=== PATIENT | female | born 1950 | race Caucasian/White ===

== ENCOUNTER → 2020-08-23 | Outpatient (CLI) | payer BC, OTHER ==
[~2020-08-23] MED LIST: BAYER CHEWABLE81 MG PO; CARAFATE1 GM/10 ML PO; CRESTOR 10 MG T10 MG PO; FEOSOL325 MG PO; FOLIC ACID 1 MG1 MG PO; GLUCOPHAGE1000 MG PO; LORTAB 5-325 M1 EACH PO; NAPROXEN500 MG PO; PROTONIX 20 MG20 MG PO; PROTONIX 40 MG40 M1 PO; SYNTHROID100 MCG PO; VITAMIN B-121000 MCG PO; ZOFRAN4 MG PO
== END ==
LOC: KOH-I 14:55
DX: R51.9 Headache, unspecified (principal)
CPT/HCPCS: 70450

== ENCOUNTER 2020-09-24 09:23 | Emergency (ER) | payer BC, OTHER ==
[~2020-09-24 09:23] MED LIST changes: -PROTONIX 40 MG40 M1 PO
[2020-09-24 09:44] LABS: HEMOGLOBIN 13.9 gm/dl (12.3-15.3); RED BLOOD COUNT 4.89 M/UL (4.00-5.10); WHITE BLOOD COUNT 9.3 K/UL (4.5-11.0)
[2020-09-24 10:07] LABS: BUN/CREATININE RATIO 15 (0-10)
[2020-09-24] MEDS ORDERED: PROTONIX 40 MG40 M1 PO (17:25)
== END 2020-09-24 17:40 | disposition home or self-care (01) ==
LOC: ER1 09:23
PROVIDERS: Student in an Organized Health Care Education/Training Program
DX: R07.89 Other chest pain (principal); M89.9 Disorder of bone, unspecified; R91.8 Other nonspecific abnormal finding of lung field; R59.0 Localized enlarged lymph nodes; E11.9 Type 2 diabetes mellitus without complications; E03.9 Hypothyroidism, unspecified; Z79.899 Other long term (current) drug therapy; Z79.84 Long term (current) use of oral hypoglycemic drugs; Z88.8 Allergy status to other drugs, medicaments and biological substances; Z53.20 Procedure and treatment not carried out because of patient's decision for unspecified reasons
CPT/HCPCS: 71045; 80053; 82550; 82553; 83690; 83874; 84484; 85025; 85379; 93005; 99285; J7030; Q9967

== ENCOUNTER → 2020-09-30 | Outpatient (CLI) | payer BC, OTHER ==
[~2020-09-30] MED LIST changes: +PROTONIX 40 MG40 M1 PO
== END ==
LOC: LAB 14:17
PROVIDERS: Family Medicine
DX: Q78.2 Osteopetrosis (principal)
CPT/HCPCS: 36415; 80048; 82330; 83970

== ENCOUNTER → 2020-10-08 | Outpatient (CLI) | payer BC, OTHER | LOC: LAB 09:46 | PROVIDERS: Family Medicine | DX: E86.0 Dehydration (principal) | CPT/HCPCS: 36415; 80048 ==

== ENCOUNTER → 2020-11-16 | Outpatient (CLI) | payer BC | LOC: MAMO 10-28 11:30 | DX: Z12.31 Encounter for screening mammogram for malignant neoplasm of breast (principal) | CPT/HCPCS: 77063; 77067 ==

== ENCOUNTER → 2020-11-25 | Outpatient (CLI) | payer BC ==
[2020-11-25 07:16] LABS: HEMOGLOBIN 12.8 gm/dl (12.3-15.3); RED BLOOD COUNT 4.68 M/UL (4.00-5.10)
[2020-11-25 07:44] LABS: BUN/CREATININE RATIO 22 (0-10)
== END ==
LOC: LAB 06:12
PROVIDERS: Family Medicine
DX: E03.9 Hypothyroidism, unspecified (principal); E11.9 Type 2 diabetes mellitus without complications; E53.8 Deficiency of other specified B group vitamins; E55.9 Vitamin D deficiency, unspecified; E78.5 Hyperlipidemia, unspecified; M19.90 Unspecified osteoarthritis, unspecified site
CPT/HCPCS: 36415; 80053; 80061; 82607; 83036; 84443; 85025

== ENCOUNTER → 2021-03-25 | Outpatient (CLI) | payer BC | LOC: KOH-I 13:00 | DX: R59.0 Localized enlarged lymph nodes (principal) | CPT/HCPCS: 71250 ==

== ENCOUNTER → 2021-06-15 | Outpatient (CLI) | payer BC ==
[2021-06-15 06:24] LABS: HEMOGLOBIN 13.5 gm/dl (12.3-15.3); RED BLOOD COUNT 4.76 M/UL (4.00-5.10); WHITE BLOOD COUNT 5.3 K/UL (4.5-11.0)
[2021-06-15 09:29] LABS: BUN/CREATININE RATIO 23 (0-10)
== END ==
LOC: LAB 06:04
PROVIDERS: Family Medicine
DX: E03.9 Hypothyroidism, unspecified (principal); E78.5 Hyperlipidemia, unspecified; E11.9 Type 2 diabetes mellitus without complications; M19.90 Unspecified osteoarthritis, unspecified site; E53.8 Deficiency of other specified B group vitamins
CPT/HCPCS: 36415; 80053; 80061; 82607; 83036; 84443; 85025

== ENCOUNTER → 2022-01-26 | Outpatient (CLI) | payer BC ==
[2022-01-26 09:21] LABS: HEMOGLOBIN 13.3 gm/dl (12.3-15.3); RED BLOOD COUNT 4.83 M/UL (4.00-5.10); WHITE BLOOD COUNT 5.9 K/UL (4.5-11.0)
[2022-01-26 09:46] LABS: BUN/CREATININE RATIO 25 (0-10)
[2022-01-27 09:14] LABS: VITAMIN D, 25-HYDROXY 44.2 ng/mL (30.0-100.0)
[2022-01-27 10:14] LABS: CREATININE, URINE 81.6 mg/dL (Not Estab.)
== END ==
LOC: LAB 08:27
PROVIDERS: Family Medicine
DX: M81.0 Age-related osteoporosis without current pathological fracture (principal); E11.9 Type 2 diabetes mellitus without complications; E55.9 Vitamin D deficiency, unspecified; D64.9 Anemia, unspecified; E53.8 Deficiency of other specified B group vitamins; B37.3 Candidiasis of vulva and vagina; E78.00 Pure hypercholesterolemia, unspecified; E03.9 Hypothyroidism, unspecified
CPT/HCPCS: 36415; 80053; 80061; 82043; 82570; 82607; 82652; 83036; 84443; 85025

== ENCOUNTER → 2022-03-09 | Outpatient (CLI) | payer BC | LOC: LAB 08:10 | DX: B34.9 Viral infection, unspecified (principal); U07.1 COVID-19 | CPT/HCPCS: U0002 ==

== ENCOUNTER → 2022-03-14 | Outpatient (CLI) | payer BC | LOC: RAD 10:42 | DX: M47.26 Other spondylosis with radiculopathy, lumbar region (principal) | CPT/HCPCS: 72100 ==